=== PATIENT | female | born 1955 | race Caucasian/White ===

== ENCOUNTER → 2023-03-21 15:29 | Outpatient (REF) | payer MEDICARE, OTHER, SELFPAY | LOC: WDC 15:29 | PROVIDERS: ATTENDING PHYSICIAN Nurse Practitioner Adult Health; FAMILY PHYSICIAN Nurse Practitioner | DX: Z12.31 Encounter for screening mammogram for malignant neoplasm of breast (principal) | CPT/HCPCS: 77063; 77067 ==

== ENCOUNTER → 2023-04-12 10:57 | Outpatient (REF) | payer MEDICARE, OTHER, SELFPAY | LOC: RAD 10:57 | PROVIDERS: ATTENDING PHYSICIAN Nurse Practitioner; FAMILY PHYSICIAN Nurse Practitioner | DX: J06.9 Acute upper respiratory infection, unspecified (principal) | CPT/HCPCS: 71046 ==

== ENCOUNTER → 2023-05-25 10:48 | Outpatient (REF) | payer MEDICARE, OTHER, SELFPAY | LOC: WDC 10:48 | PROVIDERS: ATTENDING PHYSICIAN Nurse Practitioner Adult Health; FAMILY PHYSICIAN Nurse Practitioner | DX: R92.2 Inconclusive mammogram (principal); Z80.3 Family history of malignant neoplasm of breast | CPT/HCPCS: 76641 ==

== ENCOUNTER → 2023-06-29 08:19 | Outpatient (REF) | payer MEDICARE, OTHER, SELFPAY | LOC: RAD 08:19 | PROVIDERS: ATTENDING PHYSICIAN Nurse Practitioner | DX: M25.572 Pain in left ankle and joints of left foot (principal) | CPT/HCPCS: 73610 ==

== ENCOUNTER 2023-07-20 15:37 | Emergency (ER) | payer MEDICARE, OTHER, SELFPAY ==
[2023-07-20 15:41] VITALS: BP 143/93
--- NOTE | 2023-07-20 16:33 | ED.GENMED ---
History of Present Illness
<Adriel Serrano PA-C - Last Filed: 07/21/23 16:41>
General
Chief Complaint: Abdominal Pain
Source: patient
Time Seen by Provider: 07/20/23 16:17
Travel History
Have you had any contact with someone who has COVID-19?: No
Do you have any symptoms of coronavirus? Fever > 100 degrees, chills, cough, shortness of breath, sore throat, loss of taste or smell, muscle aches, or headache?: No
History of Present Illness
History of Present Illness:
68-year-old female with past medical history of IBS presenting to the emergency department for evaluation of lower abdominal pain that has been ongoing for about 2-ricardo weeks, unrelieved with Tylenol, associated with loose stools/diarrhea. Saw both
her primary care and GI team who recommended that if symptoms did not improve or she were to develop any fevers should come to the emergency department GI had ordered the patient an MRI of her abdomen due to a known pancreatic cyst. She denies any
fevers, chills, rigors, nausea or vomiting, change in oral intake. No known sick contacts, recent travel or recent antibiotics. Patient did do a stool study this past Sunday but states she is still unsure of the results.
Past History
<Adriel Serrano PA-C - Last Filed: 07/21/23 16:41>
Past History
ED Past Medical History: Asthma and Other (IBS)
ED Past Surgical History: Gynecological and Orthopedic
Social History
Tobacco: Non-smoker
Alcohol: None
Drug: None
Personal:
Living: with family
Employment: Retired
Review of Systems
<Adriel Serrano PA-C - Last Filed: 07/21/23 16:41>
Review of Systems
All Other Systems: ROS reviewed and negative except as documented in HPI and ROS
Phy Exam
<Adriel Serrano PA-C - Last Filed: 07/21/23 16:41>
Physical Exam
Physical Exam:
GENERAL: Alert , in no apparent distress
EYE: clear conjunctiva b/l
HEAD: NCAT
ENT: mmm.
CARDIAC: Regular rate and rhythm .
LUNGS: Clear breath sounds bilaterally, no acute respiratory distress, no wheezes/rales/rhonchi
ABDOMEN: Soft, moderate tenderness diffuse lower abdomen but worse on the right lower quadrant, no rebound or guarding
NEUROLOGICAL: Alert and oriented
SKIN: Warm and dry, skin intact.
MUSCULOSKELETAL: No edema, well perfused.
PSYCH: Normal and appropriate interaction.
Scores
<Adriel Serrano PA-C - Last Filed: 07/21/23 16:41>
Heart Failure Risk
Heart Failure Risk Score: Not Applicable
Heart Score for Chest Pain Patients
STEMI patient?: Not applicable
Withdrawal Assessment of Alcohol
Withdrawal Assessment Completed?: Not applicable
Course
<Adriel Serrano PA-C - Last Filed: 07/21/23 16:41>
Orders/Labs/Results
Orders:
Orders
07/20/23 16:31
CT Abd/pelvis W Iv Cont Urgent
Comment:
Reason For Exam: diffuse lower abd pain, hx pancreatic cyst
Diphenhydramine [Benadryl] 50 mg IV NOW STA
Hydrocortisone Sod Succinate [Solu-Cortef] 200 mg IV NOW STA
07/20/23 17:01
Complete Blood Count/With Diff Urgent
Comprehensive Metabolic Panel Urgent
Lipase Urgent
07/20/23 18:18
Urinalysis Reflex To Culture Urgent
Date Specimen was Collected: 07/20/23
Time Specimen was Collected: 18:12
Urine Microscopic Reflex Cult Urgent
Abnormal Lab Results
07/20/23 07/20/23
17:01 18:18
RBC 4.07 L 10^6/uL
(4.20-5.40)
MCH 31.7 H pg
(27.0-31.0)
MCHC 32.5 L g/dL
(33.0-37.0)
MPV 11.0 H fL
(7.4-10.4)
Monocytes % 12.0 H %
(1.7-9.3)
BUN 20 H mg/dl
(7-17)
Glucose 112 H mg/dl
(70-99)
Leukocyte Esterase Rfl Trace A
(Negative)
07/20/23 17:01
07/20/23 17:01
Vital Signs
Initial and Last Documented VS:
Initial Vital Signs
Temp Pulse Resp BP Pulse Ox
98.2 F 111 20 143/93 98
07/20/23 15:41 07/20/23 15:41 07/20/23 15:41 07/20/23 15:41 07/20/23 15:41
Last Documented Vital Signs
Temp Pulse Resp BP Pulse Ox
98.2 F 111 20 144/73 90
07/20/23 15:41 07/20/23 15:41 07/20/23 15:41 07/20/23 19:00 07/20/23 19:00
Daquanlt;David Craig PA-C - Last Filed: 07/20/23 20:18>
Orders/Labs/Results
Orders:
Orders
07/20/23 16:31
CT Abd/pelvis W Iv Cont Urgent
Comment:
Reason For Exam: diffuse lower abd pain, hx pancreatic cyst
Diphenhydramine [Benadryl] 50 mg IV NOW STA
Hydrocortisone Sod Succinate [Solu-Cortef] 200 mg IV NOW STA
07/20/23 17:01
Complete Blood Count/With Diff Urgent
Comprehensive Metabolic Panel Urgent
Lipase Urgent
07/20/23 18:18
Urinalysis Reflex To Culture Urgent
Date Specimen was Collected: 07/20/23
Time Specimen was Collected: 18:12
Urine Microscopic Reflex Cult Urgent
Abnormal Lab Results
07/20/23 07/20/23
17:01 18:18
RBC 4.07 L 10^6/uL
(4.20-5.40)
MCH 31.7 H pg
(27.0-31.0)
MCHC 32.5 L g/dL
(33.0-37.0)
MPV 11.0 H fL
(7.4-10.4)
Monocytes % 12.0 H %
(1.7-9.3)
BUN 20 H mg/dl
(7-17)
Glucose 112 H mg/dl
(70-99)
Leukocyte Esterase Rfl Trace A
(Negative)
07/20/23 17:01
07/20/23 17:01
Vital Signs
Initial and Last Documented VS:
Initial Vital Signs
Temp Pulse Resp BP Pulse Ox
98.2 F 111 20 143/93 98
07/20/23 15:41 07/20/23 15:41 07/20/23 15:41 07/20/23 15:41 07/20/23 15:41
Last Documented Vital Signs
Temp Pulse Resp BP Pulse Ox
98.2 F 111 20 144/73 90
07/20/23 15:41 07/20/23 15:41 07/20/23 15:41 07/20/23 19:00 07/20/23 19:00
<Adriel Serrano PA-C - Last Filed: 07/21/23 16:41>
MDM/Problems Addressed
Differential Diagnosis Includes:
Appendicitis, colitis, diverticulitis, cholecystitis
MDM/Problems Addressed:
68-year-old female presenting the emergency department for evaluation of lower abdominal pain, right worse than left that has been ongoing for the last couple of weeks. Stool studies performed at outpatient [facility] but results unknown. No fevers.
Patient has an MRI of her abdomen scheduled for within the coming weeks. She does have pretty considerable tenderness within the lower part of her abdomen. CT ordered. Patient has IV contrast dye allergy so we will pretreat. Declining anything
for pain. Labs ordered. Reassessment following.
<Adriel Serrano PA-C - Last Filed: 07/21/23 16:41>
*Pulse Oximetry
Patient hypoxic: no
Data Reviewed
Review of Other/Old Records Reveals: Labs and Records
Source: patient
<David Craig PA-C - Last Filed: 07/20/23 20:18>
*Critical Care Note
Total Time (30-74mins, 75-104mins- exclusive of procedures): Not Applicable
<David Craig PA-C - Last Filed: 07/20/23 20:18>
Update Note
Update Note:
Assumed care of patient pending CT of abdomen. CT of abdomen shows no acute findings noted. There is a stable cyst on the pancreas. No evidence of appendicitis diverticulitis or obstruction. Labs reviewed without significant finding. Explained
results to the patient looks overall nontoxic on exam. Stable for discharge. She is following up with GI.
ED Attending Note
<Adriel Serrano PA-C - Last Filed: 07/21/23 16:41>
-
Portions of this chart may have been created with voice recognition software.� Occasional wrong word or��sound alike� substitutions may have occurred due to the inherent limitations of voice recognition software.
Discharge Plan
Departure
Patient Disposition: Home (Routine Discharge)
Date of Disposition: 07/20/23
Time of Disposition: 20:17
Patient with high blood pressure during this ER visit?: No
Discharge Problem:
Abdominal pain
Instructions: Abdominal Pain
Prescriptions:
No Action
cephalexin 500 mg capsule
500 mg PO BID 5 Days Qty: 10 0RF
ciprofloxacin HCl [Cipro] 500 mg tablet
500 mg PO BID Qty: 9 0RF
Referrals:
Levi Finney MD [Family Provider] -
Activity Restrictions/Additional Instructions:
Continue to follow-up with your GI team. Return for worsening symptoms otherwise
Interventions
Interventions:
*Risk Screen - Suicide Last Done: 07/20/23 15:41
*General Assessment Last Done: 07/20/23 15:41
*Neglect/Abuse Screening Last Done: 07/20/23 15:41
*ED COVID-19 Vaccine History Last Done: 07/20/23 17:15
*Nursing Disposition Last Done: 07/20/23 20:33
EB-Szbkiy-Jaumgyrbji Assessment Last Done: 07/20/23 17:14
Discharge Date and Time
Discharge Date/Time: 07/20/23 20:34
Print Language: [place]IZ[place]
[2023-07-20] MEDS: SOLU-CORTEF 200 MG IV (17:02)
[2023-07-20] MEDS: BENADRYL 50 MG IV (17:08)
[2023-07-20 17:09] VITALS: BP 149/85
[2023-07-20 17:16] LABS: % Basophils 0.8 % (0-2); % Immature Granulocytes 0.2 % (0-0.5); % Lymphocytes 33.3 % (20.5-51.1); % Neutrophils 52.7 % (42.2-75.2); Absolute Eosinophils 0.1 10^3/uL (0-0.7); Absolute Lymphocytes 1.7 10^3/uL (1.2-3.4); Absolute Monocytes 0.6 10^3/uL (0.1-0.6); Absolute Neutrophils 2.7 10^3/uL (1.4-6.5); Hematocrit 39.7 % (37.0-47.0); Hemoglobin 12.9 g/dL (12.0-16.0); Mean Corp Hgb Conc. 32.5 g/dL (33.0-37.0); Mean Corpuscular Hgb 31.7 pg (27.0-31.0); Mean Corpuscular Volume 97.5 fL (81.0-99.0); Nucleated Red Blood Cells % 0 %; Platelet Count 232 10^3/uL (130-400); Red Blood Cell Count 4.07 10^6/uL (4.20-5.40); White Blood Cell Count 5.1 10^3/uL (4.8-10.8)
[2023-07-20 17:33] LABS: ALT (SGPT) 26 U/L (0-35); AST (SGOT) 31 U/L (14-36); Alkaline Phosphatase 73 U/L (38-126); Blood Urea Nitrogen 20 mg/dl (7-17); Calcium 9.2 mg/dl (8.4-10.2); Carbon Dioxide 26 mmol/L (22-30); Chloride 105 mmol/L (98-107); Glucose 112 mg/dl (70-99); Lipase 139 U/L (23-300); Potassium 4.4 mmol/L (3.5-5.1); Sodium 138 mmol/L (135-145); Total Bilirubin 0.3 mg/dl (0.2-1.3); Total Protein 6.8 g/dl (6.3-8.2); eGFR > 60.00
[2023-07-20 18:00] VITALS: BP 150/80
[2023-07-20 18:19] VITALS: BP 142/77
[2023-07-20 18:36] LABS: Urine Albumin Negative (Neg - Trace); Urine Bilirubin Negative (Negative); Urine Character Clear (Clear); Urine Color Yellow; Urine Glucose Negative (Negative); Urine Ketone Negative (Negative); Urine Leukocyte Trace (Negative); Urine Nitrite Negative (Negative); Urine Occult Blood Negative (Negative); Urine Urobilinogen Negative (Neg - 1+)
[2023-07-20 19:00] VITALS: BP 144/73
[2023-07-20 19:20] LABS: Urine Red Blood Cell None Seen /HPF (0-2); Urine Squamous Cell 26-30 /LPF (Few)
== END 2023-07-20 20:34 | disposition home or self-care (01) ==
LOC: EMR 15:37
PROVIDERS: Physician Assistant Medical; EMERGENCY PHYSICIAN Student in an Organized Health Care Education/Training Program; FAMILY PHYSICIAN Family Medicine
DX: R10.31 Right lower quadrant pain (principal); K86.2 Cyst of pancreas; J45.909 Unspecified asthma, uncomplicated; K58.0 Irritable bowel syndrome with diarrhea; Z88.1 Allergy status to other antibiotic agents; Z91.030 Bee allergy status; Z91.041 Radiographic dye allergy status; Z88.0 Allergy status to penicillin; Z88.2 Allergy status to sulfonamides; Z91.048 Other nonmedicinal substance allergy status
CPT/HCPCS: 99285; 96375; 96374; 74177; 80053; 81003; 81015; 83690; 85025; Q9967

== ENCOUNTER → 2023-08-29 15:24 | Outpatient (REF) | payer MEDICARE, OTHER, SELFPAY | LOC: RAD 15:24 | PROVIDERS: ATTENDING PHYSICIAN Nurse Practitioner | DX: M79.89 Other specified soft tissue disorders (principal); R60.9 Edema, unspecified | CPT/HCPCS: 93971 ==

== ENCOUNTER → 2023-10-05 14:58 | Outpatient (REF) | payer MEDICARE, OTHER, SELFPAY | LOC: RAD 14:58 | PROVIDERS: ATTENDING PHYSICIAN Nurse Practitioner | DX: R60.0 Localized edema (principal) | CPT/HCPCS: 93970 ==

== ENCOUNTER → 2023-10-11 14:00 | Outpatient (REF) | payer MEDICARE, OTHER, SELFPAY | LOC: RAD 14:00 | PROVIDERS: ATTENDING PHYSICIAN Hospitalist; FAMILY PHYSICIAN Nurse Practitioner | DX: M06.9 Rheumatoid arthritis, unspecified (principal) | CPT/HCPCS: 73120; 73610; 73630 ==

== ENCOUNTER → 2024-03-24 16:12 | Outpatient (REF) | payer MEDICARE, OTHER, SELFPAY | LOC: WDC 16:12 | PROVIDERS: ATTENDING PHYSICIAN Nurse Practitioner | DX: Z12.31 Encounter for screening mammogram for malignant neoplasm of breast (principal) | CPT/HCPCS: 77063; 77067 ==

== ENCOUNTER → 2024-04-14 08:55 | Outpatient (REF) | payer MEDICARE, OTHER, SELFPAY | LOC: WDC 08:55 | PROVIDERS: ATTENDING PHYSICIAN Nurse Practitioner | DX: N64.4 Mastodynia (principal) | CPT/HCPCS: 76642 ==

== ENCOUNTER → 2024-05-19 14:41 | Outpatient (REF) | payer MEDICARE, OTHER, SELFPAY | LOC: DHSLP 14:41 | PROVIDERS: ATTENDING PHYSICIAN Nurse Practitioner | DX: G47.30 Sleep apnea, unspecified (principal); R06.83 Snoring | CPT/HCPCS: 95800 ==

== ENCOUNTER → 2025-01-09 13:57 | Outpatient (REF) | payer MEDICARE, OTHER, SELFPAY | LOC: REG 13:57 | PROVIDERS: ATTENDING PHYSICIAN Internal Medicine; FAMILY PHYSICIAN Nurse Practitioner | DX: K58.1 Irritable bowel syndrome with constipation (principal) | CPT/HCPCS: 74022 ==

== ENCOUNTER → 2025-01-23 09:21 | Outpatient (REF) | payer MEDICARE, OTHER, SELFPAY | LOC: MRI 3T 09:21 | PROVIDERS: ATTENDING PHYSICIAN Internal Medicine; FAMILY PHYSICIAN Nurse Practitioner | DX: K86.9 Disease of pancreas, unspecified (principal); K86.2 Cyst of pancreas | CPT/HCPCS: 74183; A9575 ==